=== PATIENT | male | born 1975 | race Caucasian/White ===

== ENCOUNTER → 2019-12-26 14:10 | Outpatient (CLI) | payer OTHER, SELFPAY ==
[2019-12-26 14:00] VITALS: BMI 40.9
--- NOTE | 2019-12-26 14:13 | RAD_ITS ---
STUDY: X-RAY - LUMBAR SPINE REASON FOR EXAM: Male, 44 years old. LOWER BACK INJURY YESTERDAY, PAIN, NO RADIATION DOWN LEGS TECHNIQUE: 5 view(s) of the lumbar spine were obtained. COMPARISON: None FINDINGS: Normal lumbar lordosis. There is no substantial scoliosis. There is a normal alignment of the vertebrae. There is multilevel mild anterior endplate spondylosis of the lumbar vertebrae, most conspicuous at L5. Early posterior spurring of the inferior L4 and L5 vertebral endplates also noted. There is mild degenerative narrowing of the L5-S1 intervertebral disc height. There is no demonstrated fracture. The right facet joint spaces are not seen optimal degree on oblique view, but there is degenerative multilevel facet joint narrowing on the left. 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 The soft tissue structures are unremarkable. RAD/L/S Spine Min 4 Views IMPRESSION: No acute fracture of the lumbar spine. There are mild multilevel degenerative changes, as described. Electronically Signed: Jonas Nascimento MD at 14:46 EST , Service support ,
== END ==
PROVIDERS: Referring Provider Physician Assistant; Visit Provider Physician Assistant
DX: S30.0XXA Contusion of lower back and pelvis, initial encounter (principal); S39.012A Strain of muscle, fascia and tendon of lower back, initial encounter
CPT/HCPCS: 72110